=== PATIENT | male | born 1955 | race Caucasian/White ===

== ENCOUNTER 2019-12-24 16:21 | Emergency (ER) | payer OTHER ==
[~2019-12-24] VITALS: Ht 185.4 cm; Wt 113.6 kg
[2019-12-24] MEDS ORDERED: HYDROcodone/acetaminophen 10/325mg tab PO ONE (17:35)
[2019-12-24] MEDS ORDERED: DOCU100C40 PO (19:27)
[2019-12-24] MEDS ORDERED: HYDR-3965 PO (19:27)
[2019-12-24 19:36] VITALS: BP 147/76
== END 2019-12-24 19:38 | disposition home or self-care (01) ==
LOC: ER 16:22
DX: S92.001A Unspecified fracture of right calcaneus, initial encounter for closed fracture (principal); G89.29 Other chronic pain; W19.XXXA Unspecified fall, initial encounter; Y93.89 Activity, other specified; Y92.89 Other specified places as the place of occurrence of the external cause; Y99.8 Other external cause status
CPT/HCPCS: 29515; 73610; 73650; 99284

== ENCOUNTER 2020-02-25 09:50 | Outpatient (CLI) | payer OTHER ==
[~2020-02-25 09:50] MED LIST: DOCU100C40 PO
== END 2020-02-25 11:17 | disposition home or self-care (01) ==
LOC: WOUND CARE 09:50 → EDSTATUS 10:20 → WOUND CARE 11:17
PROVIDERS: ATTEND Nurse Practitioner
DX: S91.301A Unspecified open wound, right foot, initial encounter (principal); G89.29 Other chronic pain; M19.90 Unspecified osteoarthritis, unspecified site; F32.9 Major depressive disorder, single episode, unspecified; F17.200 Nicotine dependence, unspecified, uncomplicated; Z85.828 Personal history of other malignant neoplasm of skin; X58.XXXA Exposure to other specified factors, initial encounter; Y93.89 Activity, other specified; Y92.89 Other specified places as the place of occurrence of the external cause; Y99.8 Other external cause status
CPT/HCPCS: G0463

== ENCOUNTER 2020-02-29 09:55 | Day surgery (SDC) | payer OTHER ==
[2020-02-29] MEDS ORDERED: LIDOcaine 2% 5ml jelly ONE (10:20)
== END 2020-02-29 11:05 | disposition home or self-care (01) ==
LOC: WOUND CARE 09:55
PROVIDERS: ATTEND Nurse Practitioner
DX: S91.301D Unspecified open wound, right foot, subsequent encounter (principal); G89.29 Other chronic pain; M19.90 Unspecified osteoarthritis, unspecified site; F32.9 Major depressive disorder, single episode, unspecified; F17.200 Nicotine dependence, unspecified, uncomplicated; Z85.828 Personal history of other malignant neoplasm of skin; X58.XXXD Exposure to other specified factors, subsequent encounter
CPT/HCPCS: 97597

== ENCOUNTER 2020-03-03 09:35 | Day surgery (SDC) | payer OTHER ==
[2020-03-03] MEDS ORDERED: LIDOcaine 1%/PF 5ML 10 MG/ML VIAL ONE (09:52)
== END 2020-03-03 10:30 | disposition home or self-care (01) ==
LOC: WOUND CARE 09:35
PROVIDERS: ATTEND Nurse Practitioner
DX: S91.301D Unspecified open wound, right foot, subsequent encounter (principal); G89.29 Other chronic pain; M19.90 Unspecified osteoarthritis, unspecified site; F32.9 Major depressive disorder, single episode, unspecified; F17.200 Nicotine dependence, unspecified, uncomplicated; Z85.828 Personal history of other malignant neoplasm of skin; X58.XXXD Exposure to other specified factors, subsequent encounter
CPT/HCPCS: 97597

== ENCOUNTER 2020-03-07 10:40 | Day surgery (SDC) | payer OTHER ==
[2020-03-07] MEDS ORDERED: LIDOcaine 2% 5ml jelly ONE (10:50)
== END 2020-03-07 11:33 | disposition home or self-care (01) ==
LOC: WOUND CARE 10:40
PROVIDERS: ATTEND Nurse Practitioner
DX: S91.301D Unspecified open wound, right foot, subsequent encounter (principal); G89.29 Other chronic pain; M19.90 Unspecified osteoarthritis, unspecified site; F32.9 Major depressive disorder, single episode, unspecified; F17.200 Nicotine dependence, unspecified, uncomplicated; Z85.828 Personal history of other malignant neoplasm of skin; X58.XXXD Exposure to other specified factors, subsequent encounter
CPT/HCPCS: 87070; 87075; 87102; 97597

== ENCOUNTER 2020-03-10 11:00 | Outpatient (CLI) | payer OTHER ==
[2020-03-10] MEDS ORDERED: LIDOcaine 2% 5ml jelly ONE (11:13)
== END 2020-03-10 12:20 | disposition home or self-care (01) ==
LOC: WOUND CARE 11:00
PROVIDERS: ATTEND Nurse Practitioner
DX: S91.301D Unspecified open wound, right foot, subsequent encounter (principal); L97.412 Non-pressure chronic ulcer of right heel and midfoot with fat layer exposed; G89.29 Other chronic pain; M19.90 Unspecified osteoarthritis, unspecified site; F32.9 Major depressive disorder, single episode, unspecified; F17.200 Nicotine dependence, unspecified, uncomplicated; Z85.828 Personal history of other malignant neoplasm of skin; X58.XXXD Exposure to other specified factors, subsequent encounter
CPT/HCPCS: 97597; 97598

== ENCOUNTER 2020-03-14 10:12 | Outpatient (CLI) | payer OTHER ==
[2020-03-14] MEDS ORDERED: LIDOcaine 2% 5ml jelly ONE (10:34)
== END 2020-03-14 23:59 | disposition home or self-care (01) ==
LOC: WOUND CARE 10:12
PROVIDERS: ATTEND Nurse Practitioner
DX: S91.301D Unspecified open wound, right foot, subsequent encounter (principal); L97.412 Non-pressure chronic ulcer of right heel and midfoot with fat layer exposed; G89.29 Other chronic pain; M19.90 Unspecified osteoarthritis, unspecified site; F32.9 Major depressive disorder, single episode, unspecified; F17.200 Nicotine dependence, unspecified, uncomplicated; Z85.828 Personal history of other malignant neoplasm of skin; X58.XXXD Exposure to other specified factors, subsequent encounter
CPT/HCPCS: 97597